=== PATIENT | male | born 1990 | race Two or more races ===

== ENCOUNTER 2016-09-17 16:26 | Inpatient (IN) | payer OTHER ==
--- NOTE | ~2016-09-17 | HP ---
Unit #: [id number] #: [id number] Patient: LORRIE BILLY [id number] [address] [place], [place] [address] [id number] MR#: [id number] NAME: LORRIE BILLY ROOM: 574 Age: 25 Sex: M Admission Date: 09/17/2016 : 1990 Attending Physician: Rehana Barragan M.D. HISTORY AND PHYSICAL HISTORY OF PRESENT ILLNESS This is a 25-year-old male from [place], new to our group. 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 There are no reports of hypertension, hyperlipidemia, diabetes mellitus, myocardial infarction, or cerebrovascular accident. There is no family history of coronary artery disease and the patient is a nonsmoker. He does have a history of palpitations in [place]. It is unclear of the type of arrhythmias. The patient had episodes of palpitations while in [place] but the episodes were brief and he was not started on any medications. He states via welcome [facility] agent phone that his heart rate was fast due to "emotions." He presented to the emergency department with complaints of palpitations. He states that yesterday he felt like his heart was beating fast. It was more severe than normal and it lasted for about an hour and half. There was no dizziness or syncope. He had some discomfort in his neck, which felt like pressure. He was slightly short of breath. There was no nausea, vomiting or diaphoresis. He denies any chest pain, PND, or orthopnea. There are no reports of lower extremity edema. In the emergency department his temperature was 99.5, pulse 153, respirations 18, and blood pressure 136/95 with an O2 saturation of 96% on room air. Initial EKG revealed atrial fibrillation with rapid ventricular response. He was started on a Cardizem bolus drip and given a liter of normal saline. He was admitted for new onset atrial fibrillation with rapid ventricular response. He was given an oral beta-hnog and subsequently converted to sinus rhythm. 2D echocardiogram was obtained and preliminary report revealed a normal ejection fraction with no significant structural abnormalities. He was placed on Lovenox initially but then changed to aspirin only due to a CHADS2-VASc score of 0. He is currently resting comfortably and telemetry reveals sinus rhythm. Upon converting to sinus rhythm last night he did have a 2.83 second pause. However, since yesterday there have been no additional pauses. There is no evidence of high grade AV block or current slowing. PAST MEDICAL HISTORY 1. History of palpitations questionably due to atrial arrhythmias while in [place]. Details area unavailable. 2. Denies hypertension, hyperlipidemia, diabetes mellitus, myocardial infarction, or cerebrovascular accident. 3. No family history of coronary artery disease. 4. Migraines. 5. Lifetime nonsmoker. Unit #: [id number] #: [id number] Patient: LORRIE BILLY PAST SURGICAL HISTORY None. HOME MEDICATIONS None. ALLERGIES No known drug allergies. SOCIAL HISTORY The patient had recently moved to the area. He is Bengali speaking and fairly active. There are no reports of alcohol, tobacco or illicit drugs use. FAMILY HISTORY Noncontributory for heart disease. REVIEW OF SYSTEMS Ten point review of systems negative except for details on above and HPI. PHYSICAL EXAMINATION VITAL SIGNS: Temperature 98.5, pulse 61, blood pressure 116/69. CONSTITUTIONAL: This is a 25-year-old male in no acute distress. SKIN: Warm and dry. NECK: Supple. No jugular venous distention. No hepatojugular reflux. Normal carotid upstrokes. No carotid bruits auscultated. HEART: S1 and S2. Regular rate and rhythm. No murmur, rubs, or gallops. LUNGS: Bilateral breath sounds have good air entry through all lung oconnor. Respirations even and unlabored. No rales, rhonchi or wheezes. ABDOMEN: Soft, nontender, nondistended. Positive bowel sounds auscultated x4 quadrants. No ascites noted. EXTREMITIES: Bilateral extremities have no pretibial edema or pitting edema. DP and PT pulses 2+. Capillary refill after three seconds. DIAGNOSTIC STUDIES LABORATORY STUDIES: White blood cell count 8.7, hemoglobin 14.4, hematocrit 41.9, platelets 271. Sodium 137, potassium 4.4, chloride 103, CO2 27, BUN 16, creatinine 0.8, glucose 80, albumin 5.1, AST 44, ALT 54, alk phos 64, CK total 742. Troponin 0.07 and 0.05, BNP 6. TSH 1.8, INR 1.0. Urine toxicology negative. IMAGING STUDIES: Chest x-ray reveals no acute findings. CARDIOLOGY STUDIES: Initial electrocardiogram revealed atrial fibrillation with a rapid ventricular response of [address]-T wave changes noted. QTC 417 msec. Repeat EKG reveals normal sinus rhythm. Nonspecific ST-T wave changes. Early repolarization. QTC 401 msec. IMPRESSION 1. Paroxysmal atrial fibrillation with rapid ventricular response, now sinus rhythm. 2. 2.83 second pause, resolved. 3. Mildly elevated LFTs. 4. Nonsmoker. PLAN Unit #: [id number] #: [id number] Patient: LORRIE BILLY 1. Patient presented to the hospital with complaints of palpitations. He was admitted for atrial fibrillation with rapid ventricular response and successfully converted with medications. 2. Since diltiazem has been discontinued and he is on a low dose beta-hong for rate control. 3. 2D echocardiogram was ordered and preliminary report reveals a normal ejection fraction with no significant structural abnormalities. 4. TSH. Electrolytes are normal. 5. LFTs are mildly elevated but the patient denies nausea or vomiting. Abdomen is soft and exam is negative. 6. The patient has a CHADS2-VASc score of 0. He will be started on aspirin [id number] for stroke prevention. 7. The patient will be discharged home this afternoon. The office will call to arrange an outpatient appointment. Dictated by Kiera Sims APRN for Isai Hawkins TD: 09/18/2016 15:01 JOB #: [id number] HISTORY AND PHYSICAL Page 1 of 1 X X HISTORY AND PHYSICAL
--- NOTE | ~2016-09-17 | EKG ---
PATIENT: LORRIE BILLY UNIT #: [id number] Ventricular Rate: 65 BPM Atrial Rate: 65 BPM P-R Interval: 194 ms QRS Duration: 86 ms Q-T Interval: 386 ms QTC Calculation(Bezet): 401 ms P [place]: -1 degrees Calculated R [place]: 46 degrees Calculated T [place]: 25 degrees Diagnosis Line: Normal sinus rhythm Diagnosis Line: Early repolarization Diagnosis Line: Normal ECG Diagnosis Line: When compared with ECG of 17-SEP-2016 16:36, Diagnosis Line: (unconfirmed) Diagnosis Line: Sinus rhythm has replaced Atrial fibrillation Diagnosis Line: Vent. rate has decreased BY 85 BPM Diagnosis Line: ST more elevated in Anterior leads Diagnosis Line: Confirmed by DIANA SNIDER MD ([id number]) on Diagnosis Line: 09/20/2016 5:18:07 PM INTERPRETING MD: MARCELL
--- NOTE | ~2016-09-17 | CR72 ---
[facility] A Service of [facility] RADIOLOGY TEXT RESULTS PATIENT: LORRIE BILLY LOCATION: [facility] 574-01 : [birth year] UNIT #: [id number] AGE: [address]: Rehana Barragan MD SEX: M ORDER DR: [id number] [facility] [address] [place], [place] [address] [id number] MR#: [id number] Acc #: [id number] NAME: LORRIE BILLY : 1990 SEX: M STUDY DATE/TIME: 09/17/2016 16:49 UNIT: [facility] ROOM: [facility] STUDY DESCRIPTION: CR Chest Single View Portable Attending Physician: Rehana Barragan M.D. Ordering Physician: Reji Paz M.D. MEDICAL IMAGING REPORT This report is preliminary unless electronic signature is present EXAM Portable chest, 09/17/16. HISTORY Dyspnea. Chest pain, shortness of breath, heart palpitations beginning today. FINDINGS A single AP portable view of the chest shows both lungs to be clear. The heart is normal in size. The mediastinal contour is normal. No significant bone abnormalities are seen. IMPRESSION Normal portable chest. Dictated by... Pradeep Olivo M.D. THIS IS AN ELECTRONICALLY VERIFIED REPORT Pradeep Olivo M.D. at 09/18/2016 2:13 PM OTF/tevin TD: 09/17/2016 19:08 JOB #: [id number] MEDICAL IMAGING REPORT Page 1 of 1 COPY
--- NOTE | ~2016-09-17 | EKG ---
PATIENT: LORRIE BILLY UNIT #: [id number] Ventricular Rate: 150 BPM Atrial Rate: 166 BPM QRS Duration: 72 ms Q-T Interval: 264 ms QTC Calculation(Bezet): 417 ms Calculated R [place]: 41 degrees Calculated T [place]: 27 degrees Diagnosis Line: Atrial fibrillation with rapid ventricular Diagnosis Line: response Diagnosis Line: Nonspecific ST abnormality Diagnosis Line: Abnormal ECG Diagnosis Line: No previous ECGs available Diagnosis Line: Confirmed by DARVIN SAUER MD ([id number]) on Diagnosis Line: 09/20/2016 3:15:17 PM INTERPRETING MD: CAMACHO TIRADO
[2016-09-17 17:09] LABS: BASOPHIL# 0.1 X10e3 (0-0.3); BASOPHIL% 0.7 % (0-2.5); EOSINOPHIL# 0.2 X10e3 (0-0.7); EOSINOPHIL% 1.8 % (0.0-7.0); HEMATOCRIT 41.9 % (38.0-50.0); HEMOGLOBIN 14.4 gm/dL (13.0-16.0); LYMPHOCYTE# 1.8 X10e3 (1.0-3.5); LYMPHOCYTE% 20.3 % (17.0-45.0); MEAN CELL VOLUME 89.5 FL (83-96); MEAN CORPUSCULAR HEMOGLOBIN 30.8 PG (28-34); MEAN CORPUSCULAR HGB CONC 34.4 g/dL (30-36); MEAN PLATELET VOLUME 8.5 FL (6.5-11.5); MONOCYTE# 1.1 X10e3 (0-1.0); MONOCYTE% 12.6 % (3.0-12.0); NEUTROPHIL# 5.6 X10e3 (1.5-7.1); NEUTROPHIL% 64.6 % (40-75); PLATELET COUNT 271 X10e3 (140-420); RED BLOOD COUNT 4.68 X10e (3.90-5.60); RED CELL DISTRIBUTION WIDTH 12.7 % (11.0-15.5); WHITE BLOOD COUNT 8.7 X10e3 (4.0-10.5)
[2016-09-17 17:10] LABS: DIFF IND NO
[2016-09-17 17:17] LABS: POC - CKMB 2.5 ng/mL (0.0-7.9); POC - TROPONIN <0.05 ng/mL (<=0.05)
[2016-09-17 17:18] LABS: PARTIAL THROMBOPLASTIN TIME 23.3 SECONDS (23.5-31.3); PROTHROMBIN TIME (PATIENT) 10.2 SECONDS (9.6-11.5)
[2016-09-17 17:29] LABS: ALBUMIN SERUM 5.1 g/dL (3.5-5.0); BILIRUBIN, DIRECT 0.1 mg/dL (0.0-0.2); BILIRUBIN,INDIRECT 0.3 mg/dL (0.0-0.9); BILIRUBIN,TOTAL 0.4 mg/dL (0.2-2.0); CALCIUM SERUM 9.9 mg/dL (8.4-10.2); CREATININE SERUM 1.2 mg/dL (0.6-1.4); POTASSIUM 4.3 mmol/L (3.5-5.1); PROTEIN TOTAL SERUM 7.7 g/dL (6.0-8.3)
[2016-09-17 19:54] LABS: POC - CKMB 2.7 ng/mL (0.0-7.9); POC - TROPONIN <0.05 ng/mL (<=0.05)
[2016-09-17 20:22] LABS: URINE SOURCE CLEAN CATCH
[2016-09-17 20:27] LABS: URINE APPEARANCE CLEAR; URINE BILIRUBIN NEG (NEG); URINE BLOOD NEG (NEG); URINE COLOR YELLOW; URINE GLUCOSE NEG (NEG); URINE KETONE NEG (NEG); URINE LEUKOCYTE ESTERASE NEG (NEG); URINE NITRATE NEG (NEG); URINE PROTEIN NEG (NEG); URINE SPECIFIC GRAVITY 1.023 (1.003-1.035); URINE UROBILINOGEN 0.2 MG/DL (NEG)
[2016-09-17 20:35] LABS: CULTURE INDICATED? NO
[2016-09-17 20:37] LABS: AMPHETAMINE NEG (NEG); BARBITURATES NEG (NEG); BENZODIAZEPINES NEG (NEG); COCAINE NEG (NEG); MARIJUANA NEG (NEG); OPIATES NEG (NEG); TRICYCLIC ANTIDEPRESSANTS NEG (NEG); U METHADONE NEG (NEG)
[2016-09-18 06:55] LABS: CALCIUM SERUM 9.3 mg/dL (8.4-10.2); CREATININE SERUM 0.8 mg/dL (0.6-1.4); GLOM FILT RATE Estimated 123.3 mL/min (>60); POTASSIUM 4.4 mmol/L (3.5-5.1)
[2016-09-18 07:30] LABS: %MB 0.8 % (0.0-4.0); MB 6.3 ng/ml
[2016-09-18] MEDS ORDERED: METOPROLOL TAR25 MG PO (14:26)
[2016-09-18] MEDS ORDERED: BAYER CHEWABLE81 MG PO (14:26)
== END 2016-09-18 15:13 | disposition home or self-care (01) | DRG 310 ==
LOC: CED 16:26 → CEDOF 18:17 → C5C 19:00
PROVIDERS: Emergency Medicine; Family Medicine; Internal Medicine Cardiovascular Disease; Student in an Organized Health Care Education/Training Program
DX: I48.0 Paroxysmal atrial fibrillation (principal); G43.909 Migraine, unspecified, not intractable, without status migrainosus
CPT/HCPCS: 36415; 71010; 80048; 80076; 80307; 81003; 82550; 82553; 83735; 83880; 84439; 84443; 84481; 84484; 85025; 85379; 85610; 85730; 93005; 93306; 96374; 99291; J1650